=== PATIENT | male | born 1965 | race Asian ===

== ENCOUNTER 2019-01-05 04:34 | Emergency (ER) | payer OTHER ==
[~2019-01-05] VITALS: Ht 188 cm; Wt 100.0 kg
[2019-01-05 05:36] LABS: BASO # 0.1 10^3/uL (0.0-0.2); BASO % 0.8 % (0.0-1.0); EOS # 0.6 10^3/uL (0.0-0.50); EOS % 6.6 % (0.0-3.0); HEMATOCRIT 45.9 % (42.0-52.0); HEMOGLOBIN 15.1 g/dl (13.5-17.5); LYMPH % 21.5 % (24.0-44.0); MEAN CORPUSCULAR HEMOGLOBIN 28.9 pg (27.0-33.0); MEAN CORPUSCULAR HGB CONC 32.9 g/dl (32.0-36.5); MEAN CORPUSCULAR VOLUME 87.9 fl (80.0-96.0); MONO # 0.8 10^3/uL (0.0-0.8); MONO % 8.1 % (0.0-5.0); NEUTROPHILS # 5.8 10^3/uL (1.8-7.7); NEUTROPHILS % 62.9 % (36.0-66.0); PLATELET COUNT, AUTOMATED 180 10^3/uL (150-450); RED BLOOD COUNT 5.22 10^6/uL (4.30-6.10); WHITE BLOOD COUNT 9.2 10^3/uL (4.0-10.0)
[2019-01-05 05:47] LABS: INR 1.03; PROTHROMBIN TIME 13.6 SECONDS (12.1-14.4)
[2019-01-05 06:01] LABS: ALBUMIN 3.6 GM/DL (3.2-5.2); ALT/SGPT 20 U/L (12-78); BILIRUBIN,TOTAL 0.7 MG/DL (0.2-1.0); BLOOD UREA NITROGEN 18 MG/DL (7-18); CALCIUM LEVEL 8.3 MG/DL (8.5-10.1); CARBON DIOXIDE LEVEL 27 MEQ/L (21-32); CHLORIDE LEVEL 108 MEQ/L (98-107); CPK CREATINE PHOSPHOKINASE 163 U/L (39-308); CREATININE FOR GFR 0.93 MG/DL (0.70-1.30); GLOMERULAR FILTRATION RATE > 60.0 (>56); GLUCOSE, FASTING 118 MG/DL (70-100); LIPASE 102 U/L (73-393); MB/CK RELATIVE INDEX 1.84 (< OR =4); SODIUM LEVEL 140 MEQ/L (136-145); TOTAL PROTEIN 6.8 GM/DL (6.4-8.2); TROPONIN I 0.64 NG/ML (< 0.10)
[2019-01-05] MEDS ORDERED: NITROGLYCERIN 0.4 MG SUBL TABLET SL PRN (06:45)
[2019-01-05] MEDS ORDERED: ASPIRIN 81 MG CHEW TABLET PO ONE (06:45)
[2019-01-05] MEDS ORDERED: ISOVUE-370 76% 100ML VIAL (Q9967) As Ordered ONE ×2 (06:50→07:39)
[2019-01-05] MEDS ORDERED: NITROGLYCERIN 2% OINT 1 GM *U/D* PKT TOP ONE (08:30)
[2019-01-05 09:16] LABS: MB/CK RELATIVE INDEX 1.9 (< OR =4); TROPONIN I 0.68 NG/ML (< 0.10)
[2019-01-05] MEDS ORDERED: LABETALOL HCL 100 MG/20 ML VIAL IV STA (09:41)
--- NOTE | 2019-01-05 10:11 | REP ---
CHEST, PORTABLE: AP portable view of the chest is performed. There appears to be mild cardiomegaly. There also appears to be vascular congestion and mild to moderate diffuse interstitial edema. There is mild calcification and tortuosity of the thoracic aorta. IMPRESSION: Mild cardiomegaly, vascular congestion with apparent mild to moderate interstitial edema. Electronically Signed by Ollie Luo MD 01/05/2019 03:12 P
[2019-01-05] MEDS ORDERED: HYDR12.55 PO (10:21)
--- NOTE | 2019-01-05 10:27 | ED PDOC ---
Post-Departure Follow-Up Dr. Sosa presented to the ED to admit the patient; however, the patient refuse d admission and left the ED AMA. The patient has the capacity to make his medical decisions and understands the risks. Allison Yoo MD January 05, 2019 10:27
[2019-01-05 10:30] VITALS: BP 148/123
[2019-01-05 10:37] VITALS: BP 139/106
--- NOTE | 2019-01-05 11:45 | CR.PDOC ---
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 History is somewhat confusing. He states that during physical exertion he experiences shortness of breath, but also states he had been experiencing emotional stress. These episodes have been intermittent since July 2018. In April he states he had similar episodes of shortness of breath, and was admitted to a hospital in [place]. He states he had an exercise stress test, and that all his testing came back normal. On further questioning, it appears that possibly with isolated physical exertion, not during times of emotional stress, he does not experience shortness of breath. He denied chest pains, dizziness, headaches, N/V/D, abdominal pain. ALLERGIES: Please see below. HOME MEDICATIONS: Please see below. PAST MEDICAL HISTORY: 1. HTN 2. DLP 3. non-compliance with medications 4. Nicotine addiction FAMILY HISTORY: Father: CABG for 4 vessel disease in his 70s Mother: angioplasty in her 60s REVIEW OF SYSTEMS: Negative except as indicated in HPI. PHYSICAL EXAMINATION: VITAL SIGNS: Please see below. GENERAL APPEARANCE: lying comfortably in bed HEENT: NC/AT, EOMI RESPIRATORY: CTA B/L CARDIOVASCULAR: +S1S2, RRR ABDOMEN: soft, NT, +BS LABORATORY DATA: Please see below. ASSESSMENT/PLAN: 53 yo male for shortness of breath, found to have elevated troponin, no ECG changes. Patient stated he did not want to stay in the hospital. Risk/benefits explained to patient, and he voiced understanding. He stated he would follow up with medical providers on return to his home. States he will be leaving AMA. Vital Signs/I&O Vital Signs Date Time Temp Pulse Resp B/P (MAP) Pulse Ox O2 Delivery O2 Flow Rate FiO2 01/05/19 10:37 85 20 139/106 (117) 95 Room Air 01/05/19 08:46 97.7 01/05/19 06:19 2.0 Laboratory Data Labs 24H Laboratory Tests 2 01/05/19 05:30: Immature Granulocyte % (Auto) 0.1, White Blood Count 9.2, Red Blood Count 5.22, Hemoglobin 15.1, Hematocrit 45.9, Mean Corpuscular Volume 87.9, Mean Corpuscular Hemoglobin 28.9, Mean Corpuscular Hemoglobin Concent 32.9, Red Cell Distribution Width 12.2, Platelet Count 180, Neutrophils (%) (Auto) 62.9, Lymphocytes (%) (Auto) 21.5L, Monocytes (%) (Auto) 8.1H, Eosinophils (%) (Auto) 6.6H, Basophils (%) (Auto) 0.8, Neutrophils # (Auto) 5.8, Lymphocytes # (Auto) 2.0, Monocytes # (Auto) 0.8, Eosinophils # (Auto) 0.6H, Basophils # (Auto) 0.1, Nucleated Red Blood Cells % (auto) 0.0, Prothrombin Time 13.6, Prothromb Time International Ratio 1.03, Anion Gap 5L, Glomerular Filtration Rate > 60.0, Blood Urea Nitrogen 18, Creatinine 0.93, Sodium Level 140, Potassium Level 4.0, Chloride Level 108H, Carbon Dioxide Level 27, Calcium Level 8.3L, Aspartate Amino Transf (AST/SGOT) 17, Alanine Aminotransferase (ALT/SGPT) 20, Total Creatine Kinase 163, Alkaline Phosphatase 58, Total Bilirubin 0.7, Total Protein 6.8, Albumin 3.6, Creatine Kinase MB 3.0, Creatine Kinase MB Relative Index 1.84, Troponin I 0.64H, Albumin/Globulin Ratio 1.13, Lipase 102 01/05/19 08:36: Total Creatine Kinase 147, Creatine Kinase MB 3.0, Creatine Kinase MB Relative Index 1.90, Troponin I 0.68H, BE-Gly-F-Type Natriuretic Peptide 5377H 01/05/19 09:14: Lactic Acid Level 1.0 CBC/BMP Laboratory Tests 01/05/19 05:30 Red Blood Count 5.22, Mean Corpuscular Volume 87.9, Mean Corpuscular Hemoglobin 28.9, Mean Corpuscular Hemoglobin Concent 32.9, Red Cell Distribution Width 12.2, Neutrophils (%) (Auto) 62.9, Lymphocytes (%) (Auto) 21.5 L, Monocytes (%) (Auto) 8.1 H, Eosinophils (%) (Auto) 6.6 H, Basophils (%) (Auto) 0.8, Neutrophils # (Auto) 5.8, Lymphocytes # (Auto) 2.0, Monocytes # (Auto) 0.8, Eosinophils # (Auto) 0.6 H, Basophils # (Auto) 0.1, Calcium Level 8.3 L, Aspartate Amino Transf (AST/SGOT) 17, Alanine Aminotransferase (ALT/SGPT) 20, Total Creatine Kinase 163, Alkaline Phosphatase 58, Total Bilirubin 0.7, Total Protein 6.8, Albumin 3.6 Microbiology Microbiology 01/05/19 Blood Culture, Received Pending 01/05/19 Blood Culture, Received Pending Allergies Coded Allergies: No Known Allergies (Unverified , 01/05/19) Home Medications Scheduled Hydrochlorothiazide (Hydrochlorothiazide) 12.5 Mg Tablet, 12.5 MG PO DAILY for 30 Days, #30 GITA PELAYO MD January 05, 2019 11:45
--- NOTE | 2019-01-06 20:58 | ECGEPIP ---
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
--- NOTE | 2019-01-06 20:59 | ECGEPIP ---
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
--- NOTE | 2019-01-07 12:55 | REP ---
Duplex extremity venous ultrasound: Bilateral lower extremities. Repeat dictation. History: Lower extremity pain. Rule out DVT. Preliminary report was provided at the time examination by [facility]. Findings: The deep veins are anechoic and fully compressible from the groin to the popliteal fossa in the left and right lower extremity. Color flow imaging is homogeneous. Spectral Doppler interrogation demonstrates intact respiratory variation in flow and normal manual augmentation of flow. There is no evidence of deep vein thrombosis. Impression: Negative bilateral lower extremity duplex venous ultrasound. No evidence of deep vein thrombosis. Electronically Signed by Ebenezer Saravia MD 01/07/2019 12:47 P
--- NOTE | 2019-01-07 14:51 | REP ---
CT pulmonary angiogram: With IV contrast. History: Chest pain, shortness of breath, tachycardia. Rule out pulmonary embolus. Repeat dictation. The study is presented to me for repeat dictation on November 07 2018. The electronic systems technician note states that the study was sent to [facility] but we do not have their reading. Comparison studies: No comparison CT. Contrast dose: 75 ML of Isovue [address] technique: Helical scanning is acquired and overlapping 1.5 mm and contiguous 3 mm axial images are reformatted. In addition, maximum intensity projection and multiplanar re-formation images are generated in sagittal and coronal imaging projections. CT pulmonary angiographic findings: There is good opacification of the pulmonary arterial tree and there is no CT evidence of pulmonary embolism. There is four-chamber cardiac enlargement. There is some moderate left and mild right coronary artery vascular calcification. There is fissural thickening without free pleural effusion. No pericardial effusion is seen. Pulmonary interlobular septa are somewhat prominent in the bases consistent with mild interstitial pulmonary edema. There is peribronchial cuffing thickening which may be a manifestation of interstitial edema as well. However, there is also evidence of mediastinal lymphadenopathy moderate in degree. Paratracheal, AP window, right hilar and subcarinal adenopathy is seen. Largest node is a precarinal measuring 26 by 37 by 24 mm. No axillary adenopathy is seen. There is a cyst in the upper pole right kidney measuring 4.8 cm in greatest diameter. No adrenal lesion is seen. No retrocrural or upper abdominal adenopathy is appreciated. Visualized upper abdominal structures are otherwise unremarkable. No bony destructive lesion is seen. No pulmonary nodule or mass lesion is observed. Impression: No CT evidence of pulmonary embolus. Four-chamber cardiac enlargement is seen and there is interstitial edema and fissural thickening consistent with CHF. Peribronchial thickening is noted diffusely which may also be a manifestation of interstitial edema. Incidental note is made of moderate right hilar and mediastinal lymphadenopathy of uncertain significance. Reactive versus malignant. Further evaluation is warranted. The findings were telephoned to the lead physician in the ED at the time of this dictation, Dr. Shah. Electronically Signed by Ebenezer Saravia MD 01/07/2019 02:50 P
== END 2019-01-05 10:46 | disposition left against medical advice (07) ==
LOC: M ED 04:34
DX: R06.00 Dyspnea, unspecified (principal); R00.0 Tachycardia, unspecified; I51.7 Cardiomegaly; J84.9 Interstitial pulmonary disease, unspecified; I50.9 Heart failure, unspecified; Z72.0 Tobacco use; Z53.21 Procedure and treatment not carried out due to patient leaving prior to being seen by health care provider
CPT/HCPCS: 71045; 71275; 80053; 82550; 82553; 83605; 83690; 83880; 84484; 85025; 85610; 87040; 93005; 93041; 93970; 94760; 96374; 99285; Q9967